=== PATIENT | female | born 1975 | race Two or more races ===

== ENCOUNTER 2023-10-02 18:23 | Emergency (ER) | payer MEDICAID ==
[~2023-10-02] VITALS: Ht 162.6 cm; Wt 61.2 kg
[2023-10-02 18:54] VITALS: BP 131/73; TEMP 98.3
[2023-10-02 19:12] VITALS: O2SAT 97
== END 2023-10-02 19:13 | disposition home or self-care (01) ==
LOC: ER 18:23
DX: K21.9 Gastro-esophageal reflux disease without esophagitis (principal)